=== PATIENT | male | born 1960 | race Hispanic/Latino ===

== ENCOUNTER 2019-08-01 08:04 | Emergency (ER) | payer BC ==
[~2019-08-01] VITALS: Ht 180.3 cm; Wt 131.5 kg
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
[2019-08-01] MEDS ORDERED: KETOROLAC TROMETHAMINE 60 MG/2 ML VIAL IM ONE (09:00)
[2019-08-01] MEDS ORDERED: DIAZEPAM 5 MG TAB PO ONE (09:05)
[2019-08-01 09:17] VITALS: BP 158/61
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
[2019-08-01] MEDS ORDERED: MOTRIN200 MG PO (10:22)
[2019-08-01] MEDS ORDERED: ROBAXIN-750750 MG PO (10:22)
== END 2019-08-01 10:50 | disposition home or self-care (01) ==
LOC: ER 08:04
DX: S16.1XXA Strain of muscle, fascia and tendon at neck level, initial encounter (principal); S23.3XXA Sprain of ligaments of thoracic spine, initial encounter; S80.01XA Contusion of right knee, initial encounter; V43.52XA Car driver injured in collision with other type car in traffic accident, initial encounter; Y92.488 Other paved roadways as the place of occurrence of the external cause
CPT/HCPCS: 70450; 72125; 73030; 73110; 73562; 99283; J1885

== ENCOUNTER 2021-01-05 19:19 | Emergency (ER) | payer BC ==
[~2021-01-05] VITALS: Ht 180.3 cm; Wt 131.5 kg
[~2021-01-05 19:19] MED LIST: MOTRIN200 MG PO; ROBAXIN-750750 MG PO
[2021-01-05] MEDS ORDERED: PREDNISONE50 MG PO (19:38)
[2021-01-05] MEDS ORDERED: VALTREX1000 MG PO (19:38)
[2021-01-05] MEDS ORDERED: ARTIFICIAL TEAR15 ML OD (19:38)
== END 2021-01-05 19:56 | disposition home or self-care (01) ==
LOC: ER 19:38
DX: G51.0 Bell's palsy (principal)
CPT/HCPCS: 93005; 99283